=== PATIENT | female | born 1940 | race Two or more races ===

== ENCOUNTER 2017-07-16 09:30 | Inpatient (IN) | payer OTHER ==
[~2017-07-16] VITALS: Ht 139.7 cm; Wt 47.6 kg
[2017-07-16] MEDS ORDERED: COZAAR25 MG (10:55)
[2017-07-16] MEDS ORDERED: CRESTOR10 MG (10:55)
[2017-07-16] MEDS ORDERED: VERAPAMIL ER240 MG (10:55)
[2017-07-16] MEDS ORDERED: SYNTHROID50 MCG (10:55)
[2017-07-22] MEDS ORDERED: OXYC1TAB9 PO (08:21)
[2017-07-22] MEDS ORDERED: DUI500 PO (08:21)
== END 2017-07-22 13:30 | disposition home or self-care (01) | DRG 483 ==
LOC: O/R 07-21 08:22 → SURH 07-21 08:22 → SURG 07-21 09:30 → SURH 07-21 16:27
PROVIDERS: Orthopaedic Surgery Sports Medicine
PROC: 0RRK00Z Replacement of Left Shoulder Joint with Reverse Ball and Socket Synthetic Substitute, Open Approach (ICD-10-PCS; principal; 2017-07-21 10:30)
DX: M19.012 Primary osteoarthritis, left shoulder (principal); M75.112 Incomplete rotator cuff tear or rupture of left shoulder, not specified as traumatic